=== PATIENT | male | born 1940 | race Caucasian/White ===

== ENCOUNTER → 2018-01-16 08:05 | Outpatient (CLI) | payer MEDICARE, OTHER ==
--- NOTE | ~2018-01-16 | EC ---
PATIENT:TREMAYNE DIXON DATE OF SERVICE: 01/16/18 SEX: M MEDICAL RECORD: [id number] DATE OF : 42 LOCATION:D.RT AGE OF PATIENT: 77 ADMISSION DATE: 01/16/18 REFERRING PHYSICIAN: INTERPRETING PHYSICIAN: RODY HARRINGTON MD ECHOCARDIOGRAM REPORT ECHO CHARGES 4 ECHO COMPLETE Date: 01/16/18 CLINICAL DIAGNOSIS: LUNG CANCER ECHOCARDIOGRAPHIC MEASUREMENTS (adult normal given) AC root (d.<3.7cm) 3.6 cm LV Septum d (<1.2 cm> 1.6 cm Valve Excursion 0.8 cm LV Septum (systole) 2.3 cm Left Atria (s.<4.0cm> 4.3 cm LVPW d(<1.2cm) 1.4 cm RV (d.<2.3cm) 2.3 cm LVPW (sytole) 2.5 cm LV diastole(<5.6CM) 4.9 cm MV E-F(>70mm/sec) cm LV systole 3.1 cm LVOT Diameter 2.0 cm MV exc.(>10mm) cm Est.ejection fraction (50-75%) % DOPPLER: LVIT cm/sec A 151 cm/sec E 76.0 cm/sec LA cm/sec RVSP 21.4 mmHg LVOT 89.0 cm/sec AOP1/2T m/s Asc. Ao 448 cm/sec RVOT 103 cm/sec RA cm/sec PA 100 cm/sec AV Gradient Peak 80.3 mmHg AV Mean 40.4 mmHg AV Area 0.6 cm MV Gradient Peak 10.3 mmHg MV Mean 2.7 mmHg MV Area cm COMMENTS: Repair Coil Winder: 1 NATY HOGELAND Silk Opener: 1 Dr. Harrington TAPE# PACS Pericardial Effusion N DATE OF SERVICE: FINDINGS: 1. Left ventricular chamber size is within normal limits. Left ventricular systolic function is mildly reduced. Overall ejection fraction in the 40% to 45% range. 2. Left atrium is enlarged at 4.3 cm. Right atrium and right ventricle chamber sizes are as well mildly dilated. 3. Valvular structures: Aortic valve demonstrates severe calcific aortic stenosis. Valve area calculates to 0.6 cm-squared. There is a gradient of 80 ECHOCARDIOGRAM REPORT [id number] TREMAYNE DIXON mm across the valve. The remaining valvular structures have normal structure and motion. 4. Doppler interrogation elsewise reveals no significant valvular insufficiency or stenosis. Pulmonary systolic pressure is normal estimated at 21 mmHg. 5. No evidence of pericardial effusion or left ventricular thrombus. TRANSINT:[id number] Voice Confirmation ID: [id number] DOCUMENT ID: [id number] RODY HARRINGTON MD CC: [id number] DICTATION DATE: 01/16/18 1006 DORMITORY SUPERVISOR: 01/16/18 1152 REG [facility] [address] [place] [address]
[~2018-01-16 08:05] MED LIST: AMBIEN CR 6.26.25 MG PO; ASPIRIN81 MG PO; CARBIDOPA-LEVO1 EAC2 PO; CYMBALTA60 MG PO; FERROUS SULFAT325 MG PO; GLUCOPHAGE1000 MG PO; LANOXIN125 MCG PO; LIPITOR80 MG PO; NORCO 10-325 TA1 TAB PO; OMEPRAZOLE20 M1 PO; PRESERVISION; TOPROL XL25 MG PO; ULTRAM50 MG; [UNRECOGNIZED DRUG - SUPPLY]
[2018-01-17 10:20] VITALS: BMI 27.2
== END | disposition home or self-care (01) ==
LOC: D.RT 07:00
DX: C34.90 Malignant neoplasm of unspecified part of unspecified bronchus or lung (principal)

== ENCOUNTER 2018-01-17 07:27 | Day surgery (SDC) | payer MEDICARE, OTHER ==
[~2018-01-17] VITALS: Ht 182.9 cm; Wt 90.7 kg
--- NOTE | ~2018-01-17 | HP ---
PATIENT: TREMAYNE DIXON MEDICAL RECORD: [id number] ACCOUNT: [id number] LOCATION:[place] : 42 ADMISSION DATE: 01/17/18 PCP: MOISES QUEZADA MD HISTORY AND PHYSICAL EXAMINATION TREMAYNE Rodas (77yo, M) ID# [id number]. Date/Time01/13/2018 11:40BAHOU75/21/1941Service Dept.NPP_[place] ClinicProviderEDNIDIA QUEZADA MDInsuranceMed Primary: [place] Insurance # : [id number] Employer Name : RETIRED Med Secondary: [employer] () Insurance # : [id number] Employer Name : RETIRED Prescription: ESI1 - Member is eligible. Chief Complaint Lung cancer LLL squamous cell carcinoma Patient's Care Team Referring Provider: CHANTEL RAE MD: [address], [place] [address], , Primary Care Provider: NARGIS ZUNIGA DO: [address], [place] [address], , Patient's Pharmacies [facility]): [address], [facility] [address], , Vitals BP:130/80 sitting L arm 01/13/2018 11:23 amBP Cuff Size:adult 01/13/2018 11:23 amHR:64,murmur, skipped beats 01/13/2018 11:23 amHt:6 ft 01/13/2018 11:23 amWt:204 lbs 01/13/2018 11:23 amNotes:found lesion incidentally on CXR during workup for fatigue and weight loss 01/13/2018 11:24 amBMI:27.7 01/13/2018 11:23 amAllergies Reviewed Allergies SULFA (SULFONAMIDE ANTIBIOTICS)Medications Reviewed Medications atenolol 25 mg jfiiuo05/17/18 filledMEDCOatorvastatin 80 mg ftkded75/01/18 filledMEDCObenzonatate 100 mg zswmkam19/11/17 filledMEDCOBreo Ellipta 100 mcg-25 mcg/dose powder for /16/18 filledMEDCOcarbidopa 25 mg-levodopa 100 mg rhdmly75/02/18 filledMEDCOclindamycin 1 % topical gel07/13/17 filledMEDCOcyanocobalamin (vit B-12) 1,000 mcg/mL injection dvcidacb98/03/17 filledMEDCOdesonide 0.05 % sxudgl96/06/18 filledMEDCOdiazePAM 2 mg bbyjjr49/29/18 filledMEDCOdigoxin 250 mcg obnxgq06/17/18 filledMEDCODULoxetine 60 mg capsule,delayed hgtfyrw80/21/18 filledMEDCOezetimibe 10 mg /21/18 filledMEDCOfluorouracil 5 % topical cream01/07/17 filledMEDCOfluticasone 50 mcg/actuation nasal spray,gwoncofsav15/25/18 filledMEDCOFreeStyle Lite Vqghai88/20/18 filledMEDCOfurosemide 20 mg ytqyrk23/17/18 filledMEDCOHYDROcodone 10 mg-acetaminophen 325 mg /26/18 filledMEDCOIncruse Ellipta 62.5 mcg/actuation powder for kihtiaimhx62/28/18 filledMEDCOirbesartan 300 mg picucg04/21/18 filledMEDCOlevoFLOXacin 750 mg xholrs17/10/18 filledMEDCOlidocaine-prilocaine 2.5 %-2.5 % topical cream11/11/17 filledMEDCOmetFORMIN 1,000 mg pgwuwp85/01/18 filledMEDCOmethocarbamol 500 mg vzkylf13/21/18 filledMEDCOomeprazole 20 mg capsule,delayed zhhgkuf57/18/18 filledMEDCOoseltamivir 75 mg dnighsf55/17/18 filledMEDCOPoly-Iron 150 Forte 150 mg-25 mcg-1 mg /06/18 filledMEDCOProAir HFA 90 mcg/actuation aerosol zjihlwx23/25/18 filledMEDCOprochlorperazine maleate 5 mg efyosg77/07/18 filledMEDCOSynjardy 12.5 mg-1,000 mg oxbsum64/22/18 filledMEDCOTanzeum 30 mg/0.5 mL subcutaneous pen omyldbnm91/21/18 filledMEDCOTheraTears 1 % gel in a HISTORY AND PHYSICAL [id number] TREMAYNE DIXON hgtrckpeppz88/25/18 filledMEDCOtraMADol 50 mg ooeexn38/10/18 filledMEDCOUltra Fresh 0.5 % eye drops11/01/17 filledMEDCOXarelto 20 mg hvhtoz00/25/17 filledMEDCOzolpidem 10 mg srxjui00/21/18 filledMEDCOzolpidem ER 12.5 mg tablet,extended release,idqmxpwzov40/23/18 filledMEDCOProblems Reviewed Problems Malignant tumor of lung Hyperlipidemia Anemia Parkinson's disease Hypertensive disorder Heart disease Dyspnea Family History Reviewed Family History Mother- Malignant neoplastic diseaseFather- Myocardial infarctionBrother- Leukemia ( age: 7)Social History Reviewed Social History Cardiology and General Smoking Status: Former smoker Surgical History Reviewed Surgical History hernia umbilical 1979 left knee 1997 stent l popliteal art 2006 heart cath 2016 cervical spine 2007 bilateral laser eye 2010 chemo port [id number] Past Medical History Reviewed Past Medical History Cancer: Y - LLL Heart Disease: Y High Blood Pressure: Y Hyperlipidemia: Y Hypertension: Y Shortness of Breath: Y Documents for Discussion Discussed the following documents: MEDICATION LIST - 01/13/18 Notes - Medication List CONSULT NOTE - CHANTEL RAE MD - 01/10/18 ONCOLOGY CONSULT NOTE - [facility] - 12/28/17 HISTORIC MEDICAL RECORDS - [facility] - 11/24/17 Screening None recorded. HPI Fatigue Reported by patient. 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 He reports muscle aches. Neurologic:: Diagnosis of parkinsonism. ROS as noted in the HPI Physical Exam Patient is a 77-year-old male. Constitutional: General Appearance well nourished and developed and healthy-appearing. Level of Distress NAD. Ambulation ambulating normally. Cardiovascular: Apical Impulse not displaced or no thrill. Heart Auscultation normal s1 and s2; no murmurs, rubs, or gallops; and RRR. Arterial Pulses no abdominal a denisse bruits, femoral bruits, or popliteal bruits and 2+ bilateral, carotid 2+ bilateral, femoral 2+ bilateral, popliteal 2+ bilateral, and dorsalis pedis 2+ bilateral. Edema no edema or varicosities. Lungs: Repiratory Effort no dyspnea. Percussion no hype rresonance or dullness or flatness. Auscultation no wheezing, rhonchi, or rales / crackles and breathing sounds normal, good air movement, and CTA except as noted. Abdomen: Bowl Sounds normal. Inspection and Palpation no tenderness, guarding, masses, or r ebound tenderness and soft and non-distended. Liver non-tender and no hepatomegaly. Spleen non-tender and no splenomegaly. Hernia none palpable. Musculoskeletal System: Gait And Stance normal gait and stance. Digits and Nails normal nails and no cyanosis. Neurologic: Cranial Nerves grossly intact. Reflexes diminished. Sensation grossly intact. Lymph Nodes: Lymph Nodes no cervical LAD, supraclavicular LAD, axillary LAD, or inguinal LAD. Eyes: Lids and Conjunctivae no discharge or pallor and non-injected. Pupils PERRLA. Cornea grossly intact. EOM EOMI. Lens clear. Sclerae non-icteric. Neck: Neck no masses, enlarged lymph nodes, or carotid bruits and supple and trachea midline. Thyroid no enlargement or nodules and non-tender. Skin: Inspection and Palpation no rash, lesions, ulcers, jaundice, or abnormal nevi. Assessment / Plan Non-small cell carcinoma left lower lobe 1. Malignant tumor of lung C34.90: Malignant neoplasm of unspecified part of unspecified bronchus or lung C34.32: Malignant neoplasm of lower lobe, left bronchus or lung Discussion Notes Pulmonary function tests Echocardiogram HISTORY AND PHYSICAL [id number] TREMAYNE DIXON Bronchoscopy letter to Dr. Rae Will discuss patient with Dr. Webster I have discussed the patient's disease process with him in detail as well as the alternative methods of treatment we discussed possible resection including the expected benefits and risk he understands all of the above and wishes to proceed with current plan Return to Office Jay Webster MD for New Patient 30 minutes at [facility] on 02/27/2018 at 03:15 PM MOISES QUEZADA MD CC: [id number] DICTATION DATE: 01/13/18 1100 DENTAL PATIENT COORDINATOR: DEEPAK 01/17/18 [address] [place] [address]
--- NOTE | ~2018-01-17 | OP ---
PATIENT NAME: TREAMYNE DIXON MEDICAL RECORD: [id number] :42 LOCATION:[facility] ADMISSION DATE: SURGEON: GONZALO ARNETT MD DATE OF OPERATION: 01/17/2018 SURGEON: Gonzalo Arnett MD ANESTHESIA: General, Luis Carrillo MD OPERATION PERFORMED: Flexible fiberoptic bronchoscopy. PREOPERATIVE DIAGNOSIS: Non-small cell carcinoma, left lower lobe. POSTOPERATIVE DIAGNOSIS: Non-small cell lung carcinoma invading the left main stem bronchus. INDICATION FOR OPERATION: Non-small cell carcinoma, left lower lobe. FINDINGS AT OPERATION: The tumor extending from the orifice of the lower lobe into the left main stem bronchus. ESTIMATED BLOOD LOSS: None. DESCRIPTION OF PROCEDURE: After informed consent, adequate preoperative medication, and evaluation, the patient was brought to the operating room and placed on the table in supine position. After induction of general anesthesia and application of appropriate monitoring devices, the patient underwent flexible fiberoptic bronchoscopy. The right lung tracheobronchial tree was normal. The left demonstrated tumor in the orifice of the left lower lobe, invading the left main stem bronchus. Resection would require a pneumonectomy. The scope was withdrawn. The patient was awakened and transferred to postanesthesia recovery in satisfactory condition. TRANSINT:[id number] Voice Confirmation ID: [id number] DOCUMENT ID: [id number] GONZALO ARNETT MD CC: [id number] DICTATION DATE: 01/17/18 1140 BILINGUAL SPEECH THERAPIST: 01/17/18 1209 REG [facility] [address] [place] [address]
[2018-01-17 08:08] LABS: BASOPHILS 0.2 % (0-2); EOSINOPHILS 2.6 % (0-7); HEMATOCRIT 33.3 % (42.0-54.0); HEMOGLOBIN 10.9 g/dL (13.5-17.5); IMMATURE GRANULOCYTES 0.3 % (0-5); MCH 28.4 pg (26.0-34.0); MCHC 32.7 g/dL (31.0-37.0); MCV 86.7 fL (80.0-100.0); MEAN PLATELET VOLUME 9.9 fL (7.4-10.4); MONOCYTES 13.6 % (2-11); NEUTROPHILS 58.3 % (40-80); PLATELET COUNT 201 10x3/uL (130-400); RBC 3.84 10x6/uL (4.20-6.10); WBC 6.5 10x3/uL (4.8-10.8)
[2018-01-17 08:24] LABS: ALBUMIN 3.4 g/dL (3.4-5.0); ALKALINE PHOSPHATASE 101 U/L (46-116); ALT (SGPT) 10 U/L (10-68); APPEARANCE CLEAR (CLEAR); BILIRUBIN NEGATIVE (NEGATIVE); BILIRUBIN - TOTAL 0.42 mg/dL (0.2-1.3); CALC OSMOLALITY 284 mosm/kg (275-300); CALCIUM 8.5 mg/dL (8.5-10.1); CARBON DIOXIDE 26.7 mmol/L (21.0-32.0); CHLORIDE - SERUM 104 mmol/L (98-107); COLOR YELLOW (YELLOW); GLUCOSE 1000 mg/dL (NEGATIVE); GLUCOSE 179 mg/dL (74-106); KETONE NEGATIVE (NEGATIVE); NITRITE NEGATIVE (NEGATIVE); POTASSIUM - SERUM 4.2 mmol/L (3.5-5.1); PROTEIN TRACE mg/dL (NEGATIVE); PROTEIN - SERUM 7.2 g/dL (6.4-8.2); SODIUM 141 mmol/L (136-145); SPECIFIC GRAVITY 1.015 (1.005-1.020); UREA NITROGEN 13 mg/dL (7-18); UROBILINOGEN NORMAL (NORMAL); eGFR NON AFRICAN AMERICAN 77 mL/min (90-120)
[2018-01-17 08:25] LABS: BACTERIA FEW /hpf (NONE SEEN); EPITHELIAL CELLS OCC /hpf (0-5); RED CELLS - URINE 0-5 /hpf (0-5); WHITE CELLS - URINE OCC /hpf (0-5)
[2018-01-17 08:35] LABS: APTT 34.5 SECONDS (22.8-39.4); INR 1.01 (0.85-1.17); PROTIME 12.8 SECONDS (11.6-15.0)
[2018-01-17] MEDS ORDERED: CYMBALTA60 MG PO (09:33)
[2018-01-17] MEDS ORDERED: TOPROL XL25 MG PO (09:34)
[2018-01-17] MEDS ORDERED: GLUCOPHAGE1000 MG PO (09:34)
[2018-01-17] MEDS ORDERED: LANOXIN125 MCG PO (09:35)
[2018-01-17] MEDS ORDERED: LIPITOR80 MG PO (09:36)
[2018-01-17] MEDS ORDERED: PRESERVISION (09:38)
[2018-01-17] MEDS ORDERED: OMEPRAZOLE20 M1 PO (09:38)
[2018-01-17] MEDS ORDERED: ASPIRIN81 MG PO (09:39)
[2018-01-17] MEDS ORDERED: FERROUS SULFAT325 MG PO (09:39)
[2018-01-17] MEDS ORDERED: AMBIEN CR 6.26.25 MG PO (09:40)
[2018-01-17] MEDS ORDERED: CARBIDOPA-LEVO1 EAC2 PO (09:41)
[2018-01-17] MEDS ORDERED: ULTRAM50 MG (09:43)
[2018-01-17] MEDS ORDERED: NORCO 10-325 TA1 TAB PO (09:43)
[2018-01-17] MEDS ORDERED: [UNRECOGNIZED DRUG - SUPPLY] (09:48)
[2018-01-17 10:20] VITALS: BP 121/73; Ht 182.9 cm; Wt 90.7 kg
== END 2018-01-17 14:20 | disposition home or self-care (01) ==
LOC: D.OPS 07:27
PROVIDERS: Internal Medicine Cardiovascular Disease
DX: C34.32 Malignant neoplasm of lower lobe, left bronchus or lung (principal); C78.02 Secondary malignant neoplasm of left lung; Z87.891 Personal history of nicotine dependence; E78.5 Hyperlipidemia, unspecified; D64.9 Anemia, unspecified; G20 Parkinson's disease; I11.9 Hypertensive heart disease without heart failure; Z01.812 Encounter for preprocedural laboratory examination